=== PATIENT | female | born 1940 ===

== ENCOUNTER 2018-04-10 18:28 | Emergency (ER) | payer MEDICARE, OTHER ==
[2018-04-10 18:51] VITALS: TEMP 97.8; O2SAT 98
[2018-04-10 18:52] VITALS: BMI 25.9
--- NOTE | 2018-04-10 19:24 | ED PDOC ---
Arrival/HPI - General Time Seen by Provider: 04/10/18 19:04 Historian: Patient - History of Present Illness Narrative History of Present Illness (Text): 04/10/18 19:19 A 77 year old female, whose past medical history includes arthritis, romero's palsy, hypothyroidism, hyperlipidemia , presents to the emergency department with complaint of palpitations. patient notes that she began to experience the palpitations yesterday and states that they have been consistent today. The patient notes that when she feels the symptoms she begins to feel anxious. She notes that she was prescribed Clonazepam and Metoprolol in the past has currently is not taking anything. The patient denies fevers, chills, headache, dizziness, sore throat, cough, chest pain, shortness of breath, dyspnea on exertion, abdominal pain, nausea, vomiting, diarrhea, neck/back pain, urinary/ bowel changes or any other complaint. PMD: Dr. Malloy Time/Duration: Other (Last Night/ Today) Symptom Onset: Sudden Symptom Course: Unchanged Activities at Onset: Rest, Light Context: Home Past Medical History - Provider Review Nursing Documentation Reviewed: Yes - Cardiac Hx Hypertension: No - Pulmonary Hx Tuberculosis: No - Neurological Hx Seizures: No - Endocrine/Metabolic Hx Hypothyroidism: Yes - Hematological/Oncological Hx Cancer: No - Musculoskeletal/Rheumatological Hx Arthritis: Yes Hx Fractures: Yes (knee) - Gastrointestinal Hx Gastritis: Yes - Genitourinary/Gynecological Hx Sexually Transmitted Diseases: No - Psychiatric Hx Substance Use: No - Surgical History Hx Breast Biopsy: Yes Hx Hysterectomy: Yes Hx Orthopedic Surgery: Yes (HARDWARE, RIGHT KNEE) Other/Comment: right knee replacement, breat cyst bx - Anesthesia Hx Anesthesia: Yes Hx Anesthesia Reactions: No Hx Malignant Hyperthermia: No - Suicidal Assessment Feels Threatened In Home Enviroment: No Family/Social History - Physician Review Nursing Documentation Reviewed: Yes Family/Social History: No Known Family HX Smoking Status: Never Smoked Hx Alcohol Use: No Hx Substance Use: No Allergies/Home Meds Allergies/Adverse Reactions: Allergies acetaminophen [From Percocet] Allergy (Verified 04/10/18 19:37) RASH Iodinated Contrast- Oral and IV Dye Allergy (Verified 04/10/18 19:38) ITCHING naproxen Allergy (Verified 04/10/18 19:37) RASH oxycodone HCl [From Percocet] Allergy (Verified 04/10/18 19:37) RASH Penicillins Allergy (Verified 04/10/18 19:37) RASH Dye Allergy (Uncoded 04/10/18 19:37) ITCHING Home Medications: Home Meds Medication Instructions Recorded Confirmed Levothyroxine [Synthroid] 0.05 mg PO DAILY 10/13/12 06/06/17 Alprazolam 0.5 mg PO HS 06/28/14 06/06/17 Dicyclomine [Bentyl] 20 mg PO TID PRN 06/06/17 06/06/17 Loperamide HCl [Imodium A-D] 2 mg PO TID PRN 06/06/17 06/06/17 Meclizine [Antivert] 12.5 mg PO TID PRN 06/06/17 06/06/17 Review of Systems - Physician Review All systems were reviewed & negative as marked: Yes - Review of Systems Constitutional: absent: Fevers, Night Sweats ENT: absent: Sore Throat Respiratory: absent: SOB, Cough Cardiovascular: Palpitations. absent: Chest Pain, [place] Gastrointestinal: absent: Abdominal Pain, Diarrhea, Nausea, Vomiting Musculoskeletal: absent: Back Pain, Neck Pain Neurological: absent: Headache, Dizziness Psychiatric: Anxiety Physical Exam Vital Signs Reviewed: Yes Vital Signs Temp Pulse Resp BP Pulse Ox 04/10/18 21:45 61 17 124/82 98 04/10/18 18:49 97.8 F 57 L 18 147/67 98 Temperature: Afebrile Blood Pressure: Normal Pulse: Bradycardic Respiratory Rate: Normal Appearance: Positive for: Well-Appearing, Non-Toxic, Comfortable Pain Distress: None Mental Status: Positive for: Alert and Oriented X 3 - Systems Exam Head: Present: Atraumatic, Normocephalic Pupils: Present: PERRL Extroacular Muscles: Present: EOMI Conjunctiva: Present: Normal Mouth: Present: Moist Mucous Membranes Neck: Present: Normal Range of Motion Respiratory/Chest: Present: Clear to Auscultation, Good Air Exchange. No: Respiratory Distress, Accessory Muscle Use Cardiovascular: Present: Regular Rate and Rhythm, Normal S1, S2. No: Murmurs Abdomen: No: Tenderness, Distention, Peritoneal Signs Back: Present: Normal Inspection Upper Extremity: Present: Normal Inspection. No: Cyanosis, Edema Lower Extremity: Present: Normal Inspection. No: Edema Neurological: Present: GCS=15, CN II-XII Intact, Speech Normal Skin: Present: Warm, Dry, Normal Color. No: Rashes Psychiatric: Present: Alert, Oriented x 3, Normal Insight, Normal Concentration Medical Decision Making ED Course and Treatment: 04/10/18 19:24 Impression: A 77 year old female presents to the emergency department with a complaint of palpitations Plan: -- EKG -- Labs -- Ativan -- Reassess and disposition Progress Notes: 04/10/18 20:42 EKG: Ordered, reviewed, and independently interpreted the EKG. Rate : 57 BPM Rhythm : Sinus Bradycardia 04/10/18 21:26 On reevaluation the patient feels better and is in no acute distress. Palpitations have resolved. I have discussed the results and plan with the patient, who expresses understanding. Patient given the opportunity to ask question, all questions were answered and there is agreement with the plan to discharge the patient home. Patient is stable for discharge. Patient was instructed to follow up with physician/clinic in 1-2 days or return if symptoms persist/worsen or new concerning symptoms arise. - Lab Interpretations Lab Results: 04/10/18 19:30 04/10/18 19:30 Lab Results 04/10/18 19:33: POC Glucose (mg/dL) 93 04/10/18 19:30: Sodium 139, Potassium 4.4, Chloride 100, Carbon Dioxide 32, Anion Gap 12, BUN 17, Creatinine 0.5 L, Est GFR ( Amer) > 60, Est GFR ( Non-Af Amer) > 60, Random Glucose 103, Calcium 9.3 04/10/18 19:30: WBC 7.5, RBC 3.96, Hgb 11.9 L, Hct 36.0, MCV 90.9, MCH 30.1, MCHC 33.1, RDW 13.1, Plt Count 341, MPV 10.3, Gran % 60.1, Lymph % (Auto) 33.2, [place] % (Auto) 5.1, Eos % (Auto) 1.2 L, Baso % (Auto) 0.4, Gran # 4.51, Lymph # ( Auto) 2.5, [place] # (Auto) 0.4, Eos # (Auto) 0.1, Baso # (Auto) 0.03 I have reviewed the lab results: Yes - Medication Orders Current Medication Orders: Discontinued Medications Lorazepam (Ativan) 1 mg PO ONCE ONE PRN Reason: Protocol Stop: 04/10/18 19:16 Last Admin: 04/10/18 19:37 Dose: 1 mg - Scribe Statement The provider has reviewed the documentation as recorded by the Maria Elena Rodriguez Provider Cariibe Attestation: All medical record entries made by the Scribe were at my direction and personally dictated by me. I have reviewed the chart and agree that the record accurately reflects my personal performance of the history, physical exam, medical decision making, and the department course for this patient. I have also personally directed, reviewed, and agree with the discharge instructions and disposition. Disposition/Present on Arrival - Present on Arrival Any Indicators Present on Arrival: No History of DVT/PE: No History of Uncontrolled Diabetes: No Urinary Catheter: No History Surgical Site Infection Following: None - Disposition Have Diagnosis and Disposition been Completed?: Yes Diagnosis: Palpitations Disposition: HOME/ ROUTINE Disposition Time: 21:26 Patient Plan: Discharge Condition: IMPROVED Discharge Instructions (ExitCare): Palpitations Print Language: TAJIK Additional Instructions: MEERA TALBOT, thank you for letting us take care of you today. Your provider was Jim Banks DO and you were treated for HEART PALPITATIONS. The emergency medical care you received today was directed at your acute symptoms. If you were prescribed any medication, please fill it and take as directed. It may take several days for your symptoms to resolve. Return to the Emergency Department if your symptoms worsen, do not improve, or if you have any other problems. Please contact your doctor or call one of the physicians/clinics you have been referred to that are listed on the Patient Visit Information form that is included in your discharge packet. Bring any paperwork you were given at discharge with you along with any medications you are taking to your follow up visit. Our treatment cannot replace ongoing medical care by a primary care provider outside of the emergency department. Thank you for allowing the [facility] team to be part of your care today. If you had an X-Ray or CT scan: A Radiologist will review the ED reading if any change in treatment is needed we will contact you. If you had a blood, urine, or wound culture: It will take several days for the results, if any change in treatment is needed we will contact you. If you had an STI test: It will take 48 hours for the results. Please call after 1 week if you have not heard back. Referrals: Chitra Malloy MD [Primary Care Provider] - Follow up with primary Forms: WORK NOTE
[2018-04-10 20:13] LABS: BASO # 0.03 K/mm3 (0.0-2.0); BASO % 0.4 % (0.0-3.0); EOS # 0.1 (0.0-0.7); EOS % 1.2 % (1.5-5.0); GRAN # 4.51 (1.4-6.5); GRAN % 60.1 % (50.0-68.0); HEMOGLOBIN 11.9 g/dL (12.0-16.0); LYMPH # 2.5 (1.2-3.4); LYMPH % 33.2 % (22.0-35.0); MEAN CELL VOLUME 90.9 fl (80.0-105.0); MEAN CORPUSCULAR HEMOGLOBIN 30.1 pg (25.0-35.0); MEAN CORPUSCULAR HGB CONC 33.1 g/dl (31.0-37.0); MEAN PLATELET VOLUME 10.3 fl (7.0-11.0); MONO # 0.4 (0.1-0.6); MONO % 5.1 % (1.0-6.0); RBC 3.96 10^6/uL (3.5-6.1); RED CELL DISTRIBUTION WIDTH 13.1 % (11.5-14.5); WHITE BLOOD COUNT 7.5 10^3/ul (4.5-11.0)
[2018-04-10 20:31] LABS: BLOOD UREA NITROGEN 17 mg/dL (7-21); CALCIUM 9.3 mg/dL (8.4-10.5); GFR AFRICAN-AMERICAN > 60; GFR NON-AFRICAN AMERICAN > 60
[2018-04-10 21:48] VITALS: BP 124/82; PULSE 61; RESP 17
--- NOTE | 2018-04-11 09:08 | CARD ---
APPROVED REPORT Date of service: 04/10/2018 EKG Measurement Heart [id number] <Conclusion> Sinus bradycardia Otherwise normal ECG
== END 2018-04-10 21:45 | disposition home or self-care (01) ==
LOC: ED 18:28
DX: R00.2 Palpitations (principal); G51.0 Bell's palsy; E78.5 Hyperlipidemia, unspecified; M19.90 Unspecified osteoarthritis, unspecified site